=== PATIENT | male | born 1970 | race Caucasian/White ===

== ENCOUNTER → 2019-03-06 15:25 | Outpatient (CLI) | payer MEDICARE ==
[2013-03-03 09:43] VITALS: BMI 49.6
[~2019-03-06 15:25] MED LIST: ACETAMINOPHEN500 M1 PO; ANAPROX DS550 MG; BENADRYL25 MG PO; COUMADIN1 MG PO; COUMADIN10 MG PO; DILAUDID INJ2 MG/ML IV; GARLIC1 CAP; LAC-HYDRIN 5226 ML TP; LEVAQUIN750 MG PO; LOVENOX40 MG/0.4 SQ; MOTRIN800 MG PO; MOUTH WASH PO; ONDANSETRON4 MG/2 M3 IV; POTASSIUM99 M1; SODIUM CL 0.91000 ML IV; TEFLARO600 MG IV; ZESTRIL40 MG PO
== END | disposition home or self-care (01) ==
LOC: D.US 15:00
PROVIDERS: ATTEND Family Medicine Adult Medicine
DX: R22.1 Localized swelling, mass and lump, neck (principal)

== ENCOUNTER → 2019-06-10 15:36 | Outpatient (CLI) | payer MEDICARE ==
[2013-03-03 09:43] VITALS: BMI 49.6
== END | disposition home or self-care (01) ==
LOC: D.US 15:36
PROVIDERS: ATTEND Nurse Practitioner Family
DX: M79.604 Pain in right leg (principal)